=== PATIENT | female | born 1995 | race Caucasian/White ===

== ENCOUNTER 2019-06-10 11:45 | Emergency (ER) | payer MEDICAID ==
[~2019-06-10] VITALS: Ht 180.3 cm; Wt 95.0 kg
[~2019-06-10 11:45] MED LIST: MARIJUANA
[2019-06-10 12:35] VITALS: BP 190/95
[2019-06-10] MEDS ORDERED: moxifloxacin 0.5% ophthalmic drops 3ml RIGHTEYE STA (12:48)
== END 2019-06-10 13:02 | disposition home or self-care (01) ==
LOC: ER 11:46
DX: S05.01XA Injury of conjunctiva and corneal abrasion without foreign body, right eye, initial encounter (principal); F12.90 Cannabis use, unspecified, uncomplicated; F10.99 Alcohol use, unspecified with unspecified alcohol-induced disorder; Z79.899 Other long term (current) drug therapy; X58.XXXA Exposure to other specified factors, initial encounter; Y93.89 Activity, other specified; Y92.89 Other specified places as the place of occurrence of the external cause; Y99.8 Other external cause status; Y90.9 Presence of alcohol in blood, level not specified
CPT/HCPCS: 99283

== ENCOUNTER 2022-06-24 18:06 | Emergency (ER) | payer MEDICAID ==
[~2022-06-24] VITALS: Ht 170.2 cm; Wt 75.0 kg
[2022-06-24] MEDS ORDERED: acetaminophen 325mg tablet PO ONE (18:30)
[2022-06-24] MEDS ORDERED: normal saline 1000ML IV soln IVB ONE (18:30)
[2022-06-24] MEDS ORDERED: ondansetron/PF 4mg/2ml inj IV ONE (18:55)
[2022-06-24] MEDS ORDERED: dicyclomine 10 MG capsule PO ONE (19:00)
[2022-06-24 19:03] LABS: BASOPHILS % (AUTO) 0.2 % (0-1); EOSINOPHILS # (AUTO) 0.1 X10'3 (0-0.9); EOSINOPHILS % (AUTO) 0.2 % (0-6); HEMATOCRIT 41.8 % (35.0-45.0); HEMOGLOBIN 14.2 g/dl (12.0-16.0); LYMPHOCYTES # (AUTO) 0.5 X10'3 (1.1-4.8); LYMPHOCYTES % (AUTO) 2.4 % (21-51); MEAN CORPUSCULAR HEMOGLOBIN 30.1 PG (27.0-31.0); MEAN CORPUSCULAR HGB CONC 34.1 g/dL (33.0-36.5); MEAN CORPUSCULAR VOLUME 88.3 FL (78-98); MEAN PLATELET VOLUME 7.5 FL (7.4-10.4); MONOCYTES # (AUTO) 1.4 X10'3 (0-0.9); MONOCYTES % (AUTO) 6.2 % (2-12); NEUTROPHILS # (AUTO) 21.2 X10'3 (1.8-7.7); PLATELET COUNT 367 X10'3 (140-440); RED BLOOD COUNT 4.73 X10'6 (4.20-5.60); RED CELL DISTRIBUTION WIDTH 12.7 % (11.5-14.5); WHITE BLOOD COUNT 23.3 X10'3 (4.5-11.0)
[2022-06-24 19:08] LABS: HCG SERUM QL NEGATIVE
[2022-06-24 19:11] LABS: ALANINE AMINOTRANSFERASE 24 U/L (12-78); ALBUMIN 4.2 G/DL (3.4-5.0); ALBUMIN/GLOBULIN RATIO 1.3 (1.1-1.5); ALKALINE PHOSPHATASE 51 IU/L (46-116); ANION GAP 12 (8-16); ASPARTATE AMINO TRANSFERASE 19 U/L (10-37); BILIRUBIN,TOTAL 0.5 MG/DL (0.1-1.0); BLOOD UREA NITROGEN 20 MG/DL (7-18); BUN/CREATININE RATIO 22.2 (6.6-38.0); CALCIUM 8.8 MG/DL (8.5-10.1); CHLORIDE 103 MMOL/L (99-107); GLUCOSE 153 MG/DL (70-104); LIPASE 73 U/L (73-393); MAGNESIUM 1.7 MG/DL (1.5-2.4); POTASSIUM 3.9 MMOL/L (3.5-5.1); SODIUM 138 MMOL/L (135-145); TOTAL CARBON DIOXIDE 22.6 MMOL/L (24-32); TOTAL PROTEIN 7.5 G/DL (6.4-8.2); eGFR 74 ML/MIN
[2022-06-24] MEDS ORDERED: iohexol 300mg/ml 100ml inj. ONE (19:43)
[2022-06-24 21:08] LABS: PLATELET ESTIMATE NORMAL; TOTAL CELLS COUNTED 100
[2022-06-24 21:09] LABS: TOXIC GRANULATION 2+; TOXIC VACUOLATION 1+
[2022-06-24 21:27] LABS: CLARITY,URINE CLEAR (Clear); COLOR,URINE YELLOW (Yellow); GLUCOSE, URINE NEGATIVE (Neg); KETONES,URINE 40 mg/dl (Neg); LEUKOCYTE ESTERASE ,URINE NEGATIVE (Neg); NITRITES, URINE NEGATIVE (Neg); OCCULT BLOOD,URINE TRACE-INTACT (Neg); PH,URINE 5.5 (4.8-8.0); PROTEIN,URINE NEGATIVE (Neg); UROBILINOGEN,URINE 0.2 E.U/dL (0.2-1.0)
[2022-06-24 21:33] LABS: UA COLLECTION TYPE CLN CATCH MIDSTREAM
[2022-06-24 21:34] LABS: BACTERIA,URINE FEW /HPF (Neg); HYALINE CASTS 0-3 /LPF (NEGATIVE); RBC,URINE 0-2 /HPF (0-2); SQUAMOUS EPITHELIAL CELL,UR MANY /LPF (FEW); WBC,URINE 0-4 /HPF (0-4)
[2022-06-24] MEDS ORDERED: ONDA4TAB12 PO ×3 (21:41→21:49)
[2022-06-24 22:07] VITALS: BP 128/80
== END 2022-06-24 22:08 | disposition home or self-care (01) ==
LOC: ER 18:07
DX: R11.2 Nausea with vomiting, unspecified (principal); Z20.822 Contact with and (suspected) exposure to COVID-19; R19.7 Diarrhea, unspecified; F12.10 Cannabis abuse, uncomplicated; I10 Essential (primary) hypertension; Z79.899 Other long term (current) drug therapy
CPT/HCPCS: 36415; 74177; 80053; 81001; 83690; 83735; 84703; 85007; 85025; 87502; 87503; 87811; 96361; 96374; 99285; J2405; J3490; J7030; Q9967

== ENCOUNTER 2022-11-23 17:22 | Emergency (ER) | payer MEDICAID ==
[~2022-11-23] VITALS: Ht 182.9 cm; Wt 90.9 kg
[~2022-11-23 17:22] MED LIST changes: +ONDA4TAB12 PO
[2022-11-23] MEDS ORDERED: diphenhydrAMINE 50 mg/ml inj IV ONE (17:25)
[2022-11-23] MEDS ORDERED: normal saline 1000ml 1,000 ML IV ONE (17:25)
[2022-11-23] MEDS ORDERED: methylPREDNISolone sod succ 125mg/2ml vial IV ONE (17:25)
[2022-11-23] MEDS ORDERED: famotidine/PF 10 mg/ml inj IV ONE (17:25)
[2022-11-23 18:15] VITALS: BP 126/87
[2022-11-23] MEDS ORDERED: PRED10TA PO (18:49)
[2022-11-23] MEDS ORDERED: CETI10TA15 PO (18:49)
--- NOTE | 2022-11-23 19:11 | NUR ---
pt stated shes feeling much better iv dc'd pt being dischsrged dressing applied
== END 2022-11-23 19:13 | disposition home or self-care (01) ==
LOC: ER 17:23
DX: T78.40XA Allergy, unspecified, initial encounter (principal); I10 Essential (primary) hypertension; F32.9 Major depressive disorder, single episode, unspecified; F12.90 Cannabis use, unspecified, uncomplicated; Z72.89 Other problems related to lifestyle; Z79.899 Other long term (current) drug therapy; X58.XXXA Exposure to other specified factors, initial encounter
CPT/HCPCS: 96361; 96374; 96375; 99284; J1200; J2930; J3490; J7030